=== PATIENT | male | born 1955 | race Caucasian/White ===

== ENCOUNTER 2017-03-22 09:58 | Emergency (ER) | payer OTHER ==
[~2017-03-22] VITALS: Ht 188 cm; Wt 92.5 kg
[2017-03-22 09:59] VITALS: BP 167/75; PULSE 56; RESP 14; TEMP 97.6; O2SAT 98
--- NOTE | 2017-03-22 10:22 | PD ---
HPI Chief Complaint: Laceration/Skin Injury Time Seen by Provider: 11:00 Travel History International Travel<30 days: No Contact w/Intl Traveler<30days: No Traveled to known affect area: No History of Present Illness HPI 61 year old white male presents to the ED with a laceration of his left 2nd digit. He reports he cut his finger on the garage door metal track after he attempted to catch himself after tripping over is dog. He denies falling to the ground, denies head injury. Reports mild pain at the site of laceration. He has full ROM & normal sensation of the digit. He has a 2.5 cm laceration to the Left 2nd digit soriano aspect. Bleeding is well controlled with dressing in place. He reports no home meds & no PMH. PFSH Past Medical History Medical History: Denies Significant Hx Tetanus Vaccination: Unknown Past Surgical History Surgical History: No Previous Surgery Social History Alcohol Use: No Tobacco Use: No Substance Use: No Allergies-Medications (Allergen,Severity, Reaction): Coded Allergies: No Known Allergies (Unverified , 03/22/17) Reported Meds & Prescriptions Reported Meds & Active Scripts Active Keflex (Cephalexin) 500 Mg Cap 500 Mg PO Q6H Review of Systems Skin: Positive Other (laceration L 2nd digit) Physical Exam Narrative GENERAL: well appearing middle age white gentleman in no acute distress SKIN: Warm and dry. 2.5 cm laceration to distal soriano aspect of Left 2nd digit. bleeding well controlled. HEAD: Normocephalic. EYES: No scleral icterus. No injection or drainage. NECK: Supple, trachea midline. No JVD or lymphadenopathy. CARDIOVASCULAR: Regular rate and rhythm without murmurs, gallops, or rubs. RESPIRATORY: Breath sounds equal bilaterally. No accessory muscle use. GASTROINTESTINAL: Abdomen soft, non-tender, nondistended. MUSCULOSKELETAL: No cyanosis, or edema. BACK: Nontender without obvious deformity. No CVA tenderness. Data Data Last Documented VS Orders Lidocaine 1% Inj (50 Ml) (Xylocaine 1% I (03/22/17 10:45) Tetanus/Diphtheria Tox Adult (Tetanus/Di (03/22/17 11:15) MDM Medical Decision Making Medical Screen Exam Complete: Yes Emergency Medical Condition: Yes Medical Record Reviewed: Yes Differential Diagnosis finger laceration vs wound infection vs tendon injury Narrative Course well appearing 61 YOM with a 2.5cm laceration to the Left distal 2nd digit. No tendon injury identified or suspected. Digit is N/V/S intact. Wound will be sutured closed. Tetanus immunization updated, prophylactic antibiotics for contaminated hand wound, F/U with PCP in 2 days for wound recheck. Procedures Procedure Narrative LACERATION LOCATION: [left index finger] LENGTH: [2.5] NUMBER OF STITCHES/SUSIE: [5, 4-0 ethilon] REPAIR: The area of the laceration was prepped with Betadine and sterilely draped. Metacarpal block performed with [1% lidocaine]. The wound was copiously irrigated and explored without evidence of foreign body, tendon injury or neurovascular injury. The wound was closed using [4-0 ethilon]. This was a [superficial skin] layer repair. A sterile dressing was applied. The patient was advised to keep the dressing clean and dry. Patient tolerated the procedure well. Diagnosis Primary Impression: Laceration of left index finger Patient Instructions: Finger Laceration (ED), General Instructions Additional Instructions: sutures need to be removed in 7-10 days. You can go to the urgent care clinic as we discussed. Return to the ED if you develop increasing pain, redness, or purulent drainage from the wound. Med/Other Pt SpecificInfo: Prescription(s) given, Wound Care Scripts Cephalexin (Keflex)500 Mg [id number] Mg PO Q6H #20 CAP Ref 0 Prov:Nellie Canales 03/22/17 Disposition: 01 DISCHARGE HOME Condition: Stable Nellie Canales March 22, 2017 10:22 Scripts Cephalexin (Keflex)500 Mg [id number] Mg PO Q6H #20 CAP Ref 0 Prov:Nellie Canales 03/22/17 Disposition: 01 DISCHARGE HOME Condition: Stable Nellie Canales March 22, 2017 10:22 Nellie Canales March 22, 2017 10:22
[2017-03-22] MEDS ORDERED: LIDOCAINE HCL 1% 50 ML VIAL INFIL ONE (10:45)
[2017-03-22] MEDS ORDERED: CEPH-460 PO (11:09)
[2017-03-22] MEDS ORDERED: TETANUS/DIPHTHERIA TOXOID ADULT 0.5 ML VIAL IM ONE (11:15)
--- NOTE | 2017-03-22 11:25 | PD ---
Data Data Last Documented VS Vital Signs Date Time Temp Pulse Resp B/P Pulse Ox O2 Delivery O2 Flow Rate FiO2 03/22/17 09:59 97.6 56 14 167/75 98 Orders Lidocaine 1% Inj (50 Ml) (Xylocaine 1% I (03/22/17 10:45) Tetanus/Diphtheria Tox Adult (Tetanus/Di (03/22/17 11:15) MDM Supervised Visit with SHERRIE: Yes Narrative Course The history, exam, and medical decision-making in the associated midlevel provider note were completed with my assistance. I reviewed and agree with the findings presented. I attest that I had a [id number] encounter with the patient on the same day, and personally performed and documented my assessment and findings in the medical record. *My assessment and Findings: This is a 61-year-old male who presents to the emergency department having sustained an injury to his left second digit on his garage door. He has a laceration with no evidence of tendon or neurovascular injury. Laceration was repaired. Patient will be discharged home. Procedures Procedure Narrative Nerve block: Digital block was performed on the left second metacarpal at the metacarpal head. 4 cc of 1% lidocaine were injected. Patient tolerated the procedure well and obtained good anesthesia. Diagnosis Primary Impression: Laceration of left index finger Referrals: NO PRIMARY CARE PHYSICIAN (PCP) call for appointment Patient Instructions: General Instructions, Care For Your Stitches (ED), Finger Laceration (ED) Departure Forms: Tests/Procedures Additional Instruction: sutures need to be removed in 7-10 days. You can go to the urgent care clinic as we discussed. Return to the ED if you develop increasing pain, redness, or purulent drainage from the wound. Scripts Cephalexin (Keflex)500 Mg [id number] Mg PO Q6H #20 CAP Ref 0 Prov:Nellie Canales Lonnie DATA ANALYST ETL DEVELOPER 03/22/17 Disposition: 01 DISCHARGE HOME Condition: Stable Kitty Ang MD March 22, 2017 11:24
== END 2017-03-22 11:23 | disposition home or self-care (01) ==
LOC: NEPD 09:58
DX: S61.211A Laceration without foreign body of left index finger without damage to nail, initial encounter (principal); W26.8XXA Contact with other sharp object(s), not elsewhere classified, initial encounter; Y93.01 Activity, walking, marching and hiking; Y92.007 Garden or yard of unspecified non-institutional (private) residence as the place of occurrence of the external cause; Z23 Encounter for immunization
CPT/HCPCS: 12001; 90471; 90714